=== PATIENT | male | born 1970 | race Caucasian/White ===

== ENCOUNTER 2016-06-27 12:56 | Emergency (ER) | payer SELFPAY ==
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
--- NOTE | 2016-06-27 15:23 | ER Document Report ---
ED General - General Chief Complaint: Neck Pain >24hrs old Stated Complaint: NECK PAIN Time seen by provider: 15:17 Mode of Arrival: Ambulatory Information source: Patient Notes: This is a 45-year-old man with a history of traumatic brain injury 1 year ago who presents to the emergency room with upper back pain radiating down the left arm. He states he's had a history of back pain and gets exacerbations of this. He denies any fever, chills, nausea vomiting. Past medical history: GERD Traumatic brain injury Cervical strain Medications none currently TRAVEL OUTSIDE OF THE [place] IN LAST 30 DAYS: No - HPI Onset: Last week Onset/Duration: Gradual Quality of pain: Dull Severity: Moderate Pain Level: 3 Associated symptoms: denies: Chills, Nonproductive cough, Productive cough, Fever, Shortness of breath Exacerbated by: Movement Relieved by: Remaining still Similar symptoms previously: Yes Recently seen / treated by doctor: No - Related Data Allergies/Adverse Reactions: fluticasone propionate [From Flonase] Allergy (Verified 06/27/16 13:16) ketorolac tromethamine [From Toradol] Allergy (Verified 06/27/16 13:16) Past Medical History - General Information source: Patient - Social History Smoking Status: Current Every Day Smoker Cigarette use (# per day): Yes - 1 pack per day Chew tobacco use (# tins/day): No Frequency of alcohol use: None Drug Abuse: None Lives with: Family Family History: Reviewed & Not Pertinent Patient has suicidal ideation: No Patient has homicidal ideation: No - Past Medical History Cardiac Medical History: Reports: Hx Atrial Fibrillation, Hx Heart Attack, Hx Pulmonary Embolism Renal/ Medical History: Denies: Hx Peritoneal Dialysis GI Medical History: Reports: Hx Gastroesophageal Reflux Disease, Hx Hiatal Hernia Musculoskeltal Medical History: Reports Hx Musculoskeletal Deformity, Reports Hx Musculoskeletal Trauma Psychiatric Medical History: Reports: Hx Depression - anxiety, PTSD Traumatic Medical History: Reports: Hx Fractures Past Surgical History: Reports: Hx Abdominal Surgery - Ashleigh Fundlopication, Hx Orthopedic Surgery - shoulder bilateral total 17 - Immunizations Hx Diphtheria, Pertussis, Tetanus Vaccination: Yes Review of Systems - Review of Systems Notes: Review of systems: Constitutional: Denies fever, chills. EENT: Denies ear pain, sinus tenderness, throat pain, throat swelling. Cardiovascular: Denies chest pain, palpitations, dyspnea or edema. Respiratory: Denies wheezing, cough, hemoptysis. Abdomen: Denies abdominal pain, nausea, vomiting, diarrhea. Denies BRBPR or melena. Genitourinary: Denies dysuria, pyuria, hematuria, flank pain. Musculoskeletal: See H&P Neurologic: See H&P Skin: Denies rash, lesions. Physical Exam - Vital signs Vitals: Temp Pulse Resp BP Pulse Ox 98.1 F 60 20 117/73 100 06/27/16 13:17 06/27/16 13:17 06/27/16 13:17 06/27/16 13:17 06/27/16 13:17 Notes: Physical exam: GENERAL: 45-year-old man, alert and oriented 3, no acute distress. HEAD: Atraumatic, normocephalic. EYES: Pupils equal round and reactive to light, extraocular movements intact, sclera anicteric, conjunctiva are normal. ENT: TMs normal, nares patent, oropharynx clear without exudates. Moist mucous membranes. NECK: Normal range of motion, supple without lymphadenopathy or JVD. LUNGS: Breath sounds clear to auscultation bilaterally and equal. No wheezes rales or rhonchi. Back: Lower cervical paraspinal tenderness on the left. No bony tenderness. Thoracic spine without any bony tenderness. There is upper thoracic paraspinal tenderness on the left. There is no swelling or erythema over the skin. There is no fluctuance. There is no crepitus. HEART: Regular rate and rhythm without murmurs, rubs or gallops. ABDOMEN: Soft, normoactive bowel sounds. No tenderness to palpation. No guarding, no rebound. No masses appreciated. EXTREMITIES: Normal range of motion, no pitting or edema. No clubbing or cyanosis. NEUROLOGICAL: Cranial nerves II through XII grossly intact. Normal speech, normal gait. PSYCH: Normal mood, normal affect. SKIN: Warm, Dry, normal turgor, no rashes or lesions noted. Course - Vital Signs Vital signs: Temp Pulse Resp BP Pulse Ox 98.0 F 66 20 121/70 100 06/27/16 15:36 06/27/16 15:36 06/27/16 15:36 06/27/16 15:36 06/27/16 15:36 Discharge - Discharge Clinical Impression: left upper extremity radiculopathy, cervical strain. Condition: Stable Disposition: HOME, SELF-CARE Instructions: Radiculopathy ([facility]), Neck Injury (Cervical Strain) ([facility]) Additional Instructions: Recommendations: As we discussed, do not take ibuprofen or Naprosyn while taking the Medrol Dosepak. Do not take extra Tylenol when taking the Percocet. 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 Take the Robaxin for muscle relaxer. [facility]up with [facility]: It is a free clinic. Return to the emergency room for worsening pain, weakness, fever (temperature greater than 100.5) or any concerns he getting worse. Prescriptions: Methocarbamol [Robaxin 500 mg Tablet] 500 mg PO BID #30 tablet Methylprednisolone [Medrol 4 mg Dosepack 21 Tab/Pack] 4 mg PO ASDIR PRN #21 tab.ds.pk PRN Reason: Oxycodone HCl/Acetaminophen [Percocet 5-325 mg Tablet] 1 - 2 tab PO ASDIR PRN # 25 tablet PRN Reason:
[2016-06-27 15:38] VITALS: BP 121/70
== END 2016-06-27 15:43 | disposition home or self-care (01) ==
LOC: ER 12:56
DX: S16.1XXA Strain of muscle, fascia and tendon at neck level, initial encounter (principal); M54.2 Cervicalgia; F17.210 Nicotine dependence, cigarettes, uncomplicated; I48.91 Unspecified atrial fibrillation; I25.2 Old myocardial infarction; M54.10 Radiculopathy, site unspecified; X58.XXXA Exposure to other specified factors, initial encounter; Z87.820 Personal history of traumatic brain injury
CPT/HCPCS: 99283

== ENCOUNTER 2016-07-03 13:55 | Emergency (ER) | payer SELFPAY ==
--- NOTE | 2016-07-03 14:03 | ER Document Report ---
ED Medical Screen (RME) - General Stated Complaint: MED REFILL Time seen by provider: 13:59 Mode of Arrival: Ambulatory Notes: Patient states he is out of his medications for PTSD and anxiety/depression for 5 days. Is here for medication refills. Take Lexapro, Ambien, ibuprofen, and Abilify. No complaints at this time. I have greeted and performed a rapid initial assessment of this patient. A comprehensive ED assessment and evaluation of the patient, analysis of test results and completion of the medical decision making process will be conducted by additional ED providers. TRAVEL OUTSIDE OF THE [place] IN LAST 30 DAYS: No - Related Data Allergies/Adverse Reactions: fluticasone propionate [From Flonase] Allergy (Verified 06/27/16 13:16) ketorolac tromethamine [From Toradol] Allergy (Verified 06/27/16 13:16) Past Medical History - Past Medical History Cardiac Medical History: Reports: Hx Atrial Fibrillation, Hx Heart Attack, Hx Pulmonary Embolism Renal/ Medical History: Denies: Hx Peritoneal Dialysis GI Medical History: Reports: Hx Gastroesophageal Reflux Disease, Hx Hiatal Hernia Musculoskeltal Medical History: Reports Hx Musculoskeletal Deformity, Reports Hx Musculoskeletal Trauma Psychiatric Medical History: Reports: Hx Depression - anxiety, PTSD Traumatic Medical History: Reports: Hx Fractures Past Surgical History: Reports: Hx Abdominal Surgery - Ashleigh Fundlopication, Hx Orthopedic Surgery - shoulder bilateral total 17 - Immunizations Hx Diphtheria, Pertussis, Tetanus Vaccination: Yes Physical Exam - General General appearance: Appears well, Alert In distress: None
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
[2016-07-03 17:55] VITALS: BP 130/72
== END 2016-07-03 17:15 | disposition home or self-care (01) ==
LOC: ER 13:55
DX: Z76.0 Encounter for issue of repeat prescription (principal); F32.9 Major depressive disorder, single episode, unspecified; F41.9 Anxiety disorder, unspecified; F43.10 Post-traumatic stress disorder, unspecified; I25.2 Old myocardial infarction; F17.200 Nicotine dependence, unspecified, uncomplicated
CPT/HCPCS: 99281

== ENCOUNTER 2016-12-29 21:34 | Emergency (ER) | payer SELFPAY ==
[2016-12-29 22:23] LABS: APPEARANCE,URINE CLEAR; BILIRUBIN,URINE NEGATIVE (NEGATIVE); GLUCOSE, URINE NEGATIVE (NEGATIVE); KETONES,URINE NEGATIVE (NEGATIVE); LEUKOCYTE ESTERASE,URINE NEGATIVE (NEGATIVE); NITRITE,URINE NEGATIVE (NEGATIVE); PROTEIN,URINE NEGATIVE (NEGATIVE); UROBILINOGEN,URINE NEGATIVE mg/dL (<2.0)
[2016-12-29 22:38] LABS: URINE BARBITURATES SCREEN NEGATIVE; URINE METHADONE SCREEN NEGATIVE; URINE OPIATES LOW NEGATIVE; URINE PHENCYCLIDINE SCREEN NEGATIVE
[2016-12-29] MEDS ORDERED: ACETAMINOPHEN 325 MG TABLET PO ONE (22:54)
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
[2016-12-29 23:24] VITALS: BP 112/72
--- NOTE | 2016-12-29 23:55 | EKG REPORT ---
SEVERITY:- BORDERLINE ECG - SINUS RHYTHM PROBABLE LEFT ATRIAL ABNORMALITY : Confirmed by: Hoang Rueda 29-Dec-2016 23:55:12
== END 2016-12-29 23:25 | disposition home or self-care (01) ==
LOC: EEVIPCON 21:34 → ER 21:34
DX: R45.4 Irritability and anger (principal); F60.3 Borderline personality disorder; F90.9 Attention-deficit hyperactivity disorder, unspecified type; F43.10 Post-traumatic stress disorder, unspecified; F31.9 Bipolar disorder, unspecified
CPT/HCPCS: 80307; 81001; 93005; 93010; 99284